=== PATIENT | female | born 2000 | race Caucasian/White ===

== ENCOUNTER 2022-10-22 22:09 | Emergency (ER) | payer OTHER ==
[~2022-10-22] VITALS: Ht 152.4 cm; Wt 44.0 kg
[2022-10-22] MEDS ORDERED: AMOXICILLIN500 MG PO (23:32)
== END 2022-10-22 23:42 | disposition home or self-care (01) ==
LOC: ED 22:09
DX: H66.92 Otitis media, unspecified, left ear (principal)
CPT/HCPCS: 99282

== ENCOUNTER 2022-10-23 15:10 | Emergency (ER) | payer OTHER ==
[~2022-10-23] VITALS: Ht 152.4 cm; Wt 44.0 kg
[~2022-10-23 15:10] MED LIST: AMOXICILLIN500 MG PO
--- OUTSIDE RECORDS SUMMARY | 2022-10-23 15:18 | XMS ---
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 Blaire has no Care Guidelines for this patient. [facility]12 MO.) [facility] NOTE: Visits indicate total known visits. ED/[facility] [place]ISIT TRACKING (12 MO.) 10[facility]23[facility]2022 15[facility] COMPLAINT: - EAR PROBLEM 10/22/2022 22:10 [facility] [place] TYPE: Emergency COMPLAINT: - LT EAR PAIN INPATIENT VISIT TRACKING (12 MO.) No inpatient visits to display in this time frame [email or web address]
== END 2022-10-23 16:10 | disposition home or self-care (01) ==
LOC: ED 15:10
DX: H66.92 Otitis media, unspecified, left ear (principal); H72.92 Unspecified perforation of tympanic membrane, left ear
CPT/HCPCS: 99282; A9270

== ENCOUNTER 2024-09-01 13:49 | Emergency (ER) | payer OTHER ==
[~2024-09-01] VITALS: Ht 152.4 cm; Wt 40.4 kg
[2024-09-01] MEDS ORDERED: VITAFOL-OB+DHA1 EACH (16:51)
[2024-09-01] MEDS ORDERED: PROMETHAZINE12.5 M1 (16:51)
[2024-09-01] MEDS ORDERED: ondansetron HCL 4 MG/2 ML VIAL IV ONE (17:00)
[2024-09-01] MEDS ORDERED: SODIUM CHLORIDE 0.9% 1,000 ML IV PRN (17:00)
[2024-09-01 17:18] LABS: BASOPHILS 0.5 % (0-2); EOSINOPHILS 0.2 % (0-6); HEMATOCRIT 42.2 % (35.0-50.0); HEMOGLOBIN 14.9 g/dL (12.0-18.0); LYMPHOCYTES 12.4 % (24-44); MCH 30.9 (27-36); MCHC 35.4 g/dl (30-36); MCV 87.3 fl (81-99); MONOCYTES 7.9 % (0-12); PLATELET COUNT 342 K/uL (140-440); RBC 4.84 M/ul (4.3-5.7); RDW 13.1 (10.5-15.0)
[2024-09-01 17:39] LABS: ALBUMIN 4.4 g/dL (3.4-5.0); ALBUMIN/GLOBULIN RATIO 1.1 (1.1-2.4); ANION GAP 17.2 (7-21); BILIRUBIN, TOTAL 0.8 ng/dL (0.2-1.0); BUN/CREATININE RATIO 11.94 (6.0-28.6); CALCIUM 9.5 mg/dL (8.5-10.1); CREATININE, SERUM 0.67 mg/dL (0.55-1.02); MAGNESIUM 1.8 mg/dL (1.8-2.4); POTASSIUM 3.2 mmol/L (3.5-5.1); PROTEIN, TOTAL 8.4 g/dL (6.4-8.2)
[2024-09-01] MEDS ORDERED: POTASSIUM CHLORIDE 10 MEQ TABCR PO ONE (18:00)
[2024-09-01 18:08] LABS: BILIRUBIN, URINE NEGATIVE (negative); BLOOD/HGB, URINE TRACE-L (Negative); KETONE, URINE >=80 (Negative); LEUK ESTERASE, URINE NEGATIVE (negative); NITRITE, URINE NEGATIVE (negative)
[2024-09-01 18:15] LABS: BACTERIA, URINE 1+ /hpf (negative); CASTS, URINE NONE SEEN \\lpf; COLLECTION TYPE, URINE CLEAN CATCH; CRYSTALS, URINE NONE SEEN (0-1+); EPITHELIAL CELLS, URINE SQUAMOUS 4+ /lpf (0-1+); REFLEX CULTURE, URINE No (No); WHITE BLOOD CELLS, URINE 0-1 /HPF (0-5)
[2024-09-01] MEDS ORDERED: K-TAB ER20 MEQ PO (18:57)
[2024-09-01] MEDS ORDERED: ONDANSETRON ODT8 MG PO (18:57)
[2024-09-01 19:07] VITALS: BP 99/65
== END 2024-09-01 19:06 | disposition home or self-care (01) ==
LOC: ED 13:49
PROVIDERS: Emergency Medicine
DX: O21.0 Mild hyperemesis gravidarum (principal); Z3A.01 Less than 8 weeks gestation of pregnancy; Z79.899 Other long term (current) drug therapy
CPT/HCPCS: 36415; 80053; 81001; 83735; 84703; 85025; 96361; 96374; 99284-25; A9270; J2405; J7030

== ENCOUNTER 2025-02-03 13:22 | Emergency (ER) | payer OTHER ==
[~2025-02-03] VITALS: Ht 152.4 cm; Wt 50.6 kg
[~2025-02-03 13:22] MED LIST changes: +K-TAB ER20 MEQ PO; +ONDANSETRON ODT8 MG PO; +PROMETHAZINE12.5 M1; +VITAFOL-OB+DHA1 EACH
[2025-02-03 13:37] LABS: BASOPHILS 0.5 % (0.1-1.2); EOSINOPHILS 0.9 % (0.7-5.8); LYMPHOCYTES 10.4 % (19.3-51.7); MCH 25.2 PG (25.6-32.2); MCHC 30.6 g/dL (32.2-35.5); MCV 82.4 fL (79.4-94.8); MONOCYTES 6.6 % (4.7-12.5); NEUTROPHILS 80.9 % (34.0-71.1); RBC 3.81 M/uL (3.93-5.22)
[2025-02-03 14:05] VITALS: BP 116/77
[2025-02-03 14:05] LABS: ALT (SGPT) 18 U/L (14-59); AST (SGOT) 22 U/L (15-37); GLOMERULAR FILTRATION RATE,EST 129 mL/min (>60); PROTEIN, TOTAL 7.3 g/dL (6.4-8.2); UREA NITROGEN 5 mg/dL (7-18)
--- NOTE | 2025-02-04 12:58 | EKG ---
[facility] [address] [facility] [place], [place] [address] Signed Normal sinus rhythm Nonspecific ST abnormality Abnormal ECG No previous ECGs available Confirmed by Mega Landaverde DO ([id number]) on 02/04/2025 12:58:34 PM Electronically Signed By: MEGA LANDAVERDE DO 02/04/25 1258 PATIENT NAME: VIDAL BELTRÁN Electrocardiogram DATE OF : [birth year] PHYSICIAN: MEGA LANDAVERDE DO REPORT #: [id number] REPORT IS CONFIDENTIAL AND NOT TO BE RELEASED WITHOUT AUTHORIZATION
== END 2025-02-03 14:05 | disposition home or self-care (01) ==
LOC: ED 13:22
PROVIDERS: Emergency Medicine
DX: O99.891 Other specified diseases and conditions complicating pregnancy (principal); R07.89 Other chest pain; Z79.899 Other long term (current) drug therapy
CPT/HCPCS: 36415; 80053; 83735; 84484; 85025; 93005; 93010; 99285

== ENCOUNTER 2025-04-13 06:06 | Inpatient (IN) | payer OTHER ==
[~2025-04-13] VITALS: Ht 152.4 cm; Wt 54.0 kg
[2025-04-16 19:44] LABS: MCH 22.7 PG (25.6-32.2); MCHC 30.3 g/dL (32.2-35.5); MCV 74.8 fL (79.4-94.8); RBC 4.76 M/uL (3.93-5.22)
[2025-04-16] MEDS ORDERED: LIDOCAINE HCL 1% 30 ML SDV INJ PRN (19:45)
[2025-04-16] MEDS ORDERED: OXYTOCIN/0.9 % SODIUM CHLORIDE 30 UNITS/500 ML BAG IV SCH (19:45)
[2025-04-16] MEDS ORDERED: LACTATED RINGER'S 1,000 ML IV PRN (19:45)
[2025-04-16] MEDS ORDERED: MAGNESIUM HYDROXIDE/AL HYDROX 30 ML CUP PO PRN (19:45)
[2025-04-16] MEDS ORDERED: CALCIUM CARBONATE 500 MG CHEW PO PRN (19:45)
[2025-04-16] MEDS ORDERED: TERBUTALINE SULFATE 1 MG/ML AMP SUB-Q PRN (19:45)
[2025-04-16] MEDS ORDERED: LACTATED RINGER'S 1,000 ML IV SCH (19:45)
[2025-04-16 20:09] LABS: AMPHETAMINES, URINE NEGATIVE (NEGATIVE); BARBITURATES, URINE NEGATIVE (NEGATIVE); BENZODIAZEPINE, URINE NEGATIVE (NEGATIVE); CANNABINOID, URINE POSITIVE (NEGATIVE); COCAINE, URINE NEGATIVE (NEGATIVE); ECSTASY, URINE NEGATIVE (NEGATIVE); FENTANYL, URINE NEGATIVE (NEGATIVE); METHADONE, URINE NEGATIVE (NEGATIVE); OPIATES, URINE NEGATIVE (NEGATIVE); OXYCODONE, URINE NEGATIVE (NEGATIVE); PHENCYCLIDINE, URINE NEGATIVE (NEGATIVE)
[2025-04-16 20:20] LABS: ABO O; ANTIBODY SCREEN NEGATIVE; RH POSITIVE
[2025-04-16] MEDS ORDERED: fentaNYL citrate 100 MCG/2 ML VIAL ONE (20:32)
[2025-04-16] MEDS ORDERED: ROPIVACAINE 0.2% 200 ML BAG ONE (20:32)
[2025-04-16] MEDS ORDERED: ePHEDrine sulfate 5 MG/ML SYRINGE IV PRN (21:15)
[2025-04-16] MEDS ORDERED: LACTATED RINGER'S 500 ML IV PRN (21:15)
[2025-04-16] MEDS ORDERED: LACTATED RINGER'S 2,000 ML IV ONE (21:15)
[2025-04-16] MEDS ORDERED: ROPIVACAINE 0.2% 200 ML BAG EPIDURAL SCH (21:15)
[2025-04-16 22:22] VITALS: BP 115/78
[2025-04-17] MEDS ORDERED: LACTATED RINGER'S 1,000 ML XX SCH (01:15)
[2025-04-17] MEDS ORDERED: LIDOCAINE 2% VISCOUS 6 ML SYR TOP ONE ×2 (09:45)
[2025-04-17] MEDS ORDERED: IBUPROFEN 600 MG TAB PO PRN (09:45)
[2025-04-17] MEDS ORDERED: OXYTOCIN/0.9 % SODIUM CHLORIDE 500 ML IV SCH (09:45)
[2025-04-17] MEDS ORDERED: MAGNESIUM HYDROXIDE/AL HYDROX 30 ML CUP PO PRN (09:45)
[2025-04-17] MEDS ORDERED: WITCH HAZEL/GLYCERIN 1 EA PAD TOP PRN (09:45)
[2025-04-17] MEDS ORDERED: HYDROCODONE/ACETA 5/325 TAB PO PRN (09:45)
[2025-04-17] MEDS ORDERED: BENZOCAINE 60 ML AEROSOL TOP PRN (09:45)
[2025-04-17] MEDS ORDERED: ACETAMINOPHEN 325 MG TAB PO PRN (09:45)
[2025-04-17] MEDS ORDERED: CALCIUM CARBONATE 500 MG CHEW PO PRN (09:45)
[2025-04-17] MEDS ORDERED: HYDROCORTISONE ACETATE 25 MG SUPP PR PRN (09:45)
[2025-04-17] MEDS ORDERED: MAGNESIUM HYDROXIDE 30 ML UDC PO PRN (09:45)
[2025-04-17] MEDS ORDERED: SENNOSIDES/DOCUSATE 1 EA TAB PO SCH (21:00)
--- NOTE | 2025-04-18 04:21 | PR ---
[facility] [address] [facility] [place], [place] [address] Signed PP Progress Notes Datetime Report Generated by [employer]: 04/18/2025 04:20 SUBJECTIVE: [id number] Pain: Within Normal Limits Nausea/Vomiting: Denies Flatus: Yes Vital Signs: [id number] Vital Signs: Reviewed; Within Normal Limits EXAM: Ongoing EXAM: Ongoing Cardiovascular: Normal Respiratory: Normal Abdomen/Uterus: Normal Lochia: Normal Vulva/Perineum: Normal Breasts: Normal CVA Tenderness: Not Done Extremities: Normal Incision: Not Applicable IMPRESSION/PLAN/PROCEDURES: [id number] Impression: Normal Progression Plan: Continue Present Management; Discharge Progress Notes: Recovering well. Normal lochia, pain well controlled. Ambulating. Desires D/C home. Signing Physician: Charla Hinojosa MD Copies: ~ *Electronically Signed* 04/18/25 0420 CHARLA HINOJOSA MD PATIENT NAME: VIDAL BELTRÁN PROGRESS NOTE DATE OF : [birth year] PHYSICIAN: CHARLA HINOJOSA MD RPT #: [id number] REPORT IS CONFIDENTIAL AND NOT TO BE RELEASED WITHOUT AUTHORIZATION
[2025-04-18 05:44] LABS: MCH 22.9 PG (25.6-32.2); MCHC 30.5 g/dL (32.2-35.5); MCV 75.1 fL (79.4-94.8); RBC 3.49 M/uL (3.93-5.22)
[2025-04-18 11:58] LABS: MCH 23.0 PG (25.6-32.2); MCHC 31.0 g/dL (32.2-35.5); MCV 74.2 fL (79.4-94.8); RBC 3.22 M/uL (3.93-5.22)
[2025-04-18] MEDS ORDERED: AMP/SULBACTAM SOD 1.5 GM in SODIUM CHLORIDE 0.9% 100 ML IV SCH (14:00)
[2025-04-18] MEDS ORDERED: LACTATED RINGER'S 1,000 ML IV SCH ×2 (20:30)
== END 2025-04-21 08:35 | disposition home or self-care (01) | DRG 768 ==
LOC: FBCO → FBC 04-16 12:06 → FBCO 04-19 11:37 → EDSTATUS 04-19 12:04 → FBC 04-21 08:35
PROVIDERS: ADMIT Obstetrics & Gynecology; ATTEND Obstetrics & Gynecology
PROC: 00HU33Z Insertion of Infusion Device into Spinal Canal, Percutaneous Approach (ICD-10-PCS; 2025-04-16)
PROC: 3E0R3BZ Introduction of Anesthetic Agent into Spinal Canal, Percutaneous Approach (ICD-10-PCS; 2025-04-16)
PROC: 10D07Z6 Extraction of Products of Conception, Vacuum, Via Natural or Artificial Opening (ICD-10-PCS; principal; 2025-04-17)
PROC: 0DQR0ZZ Repair Anal Sphincter, Open Approach (ICD-10-PCS; 2025-04-17)
PROC: 0W8NXZZ Division of Female Perineum, External Approach (ICD-10-PCS; 2025-04-17)
DX: O99.02 Anemia complicating childbirth (principal); Z37.0 Single live birth; O70.20 Third degree perineal laceration during delivery, unspecified; O77.0 Labor and delivery complicated by meconium in amniotic fluid; Z3A.39 39 weeks gestation of pregnancy; O76 Abnormality in fetal heart rate and rhythm complicating labor and delivery; Z87.891 Personal history of nicotine dependence; Z14.8 Genetic carrier of other disease
CPT/HCPCS: 01960; 36415; 80307; 85027; 85060; 86850; 86900; 86901; A9270; J0295; J2405; J2795; J3010; J7121